=== PATIENT | female | born 1995 | race Caucasian/White ===

== ENCOUNTER → 2022-10-17 | Outpatient (CLI) | payer OTHER, SELFPAY ==
[2022-10-17 15:30] LABS: Internal QC Validated? YES +Cl - CLEAR BKGD; Pregnancy, Serum, hCG Quali. NEGATIVE Negative
[2022-10-17 15:49] LABS: Free T3 24.7 pg/mL (2.18-3.98)
== END | disposition home or self-care (01) ==
LOC: LAB 14:54
PROVIDERS: PCP Nurse Practitioner Family; Referring Provider Internal Medicine Endocrinology, Diabetes & Metabolism; Visit Provider Internal Medicine Endocrinology, Diabetes & Metabolism
DX: E05.00 Thyrotoxicosis with diffuse goiter without thyrotoxic crisis or storm (principal)
CPT/HCPCS: 36415; 84481; 84703

== ENCOUNTER → 2022-10-24 | Outpatient (CLI) | payer OTHER, SELFPAY ==
--- NOTE | 2022-10-24 12:05 | NM_ITS ---
INDICATION: 12 mci please for treatment of Grave''s disease -- NO POST TREATMENT SCAN EXAMINATION: NUCLEAR MEDICINE THYROID THERAPY - NM Radiopharmaceutical Therapy, by oral administration TECHNIQUE: After obtaining informed consent, the patient was orally administered a 12.8 mCi I-131 tablet. COMPARISON: None. FINDINGS: Oral administration of a 12.8 mCi tablet of iodine-131. NM/Therapy I-131 IMPRESSION: Radioactive iodine therapy. Electronically Signed: Steven Colón MD at 14:05 EDT ,
== END | disposition home or self-care (01) ==
LOC: NM 12:04
PROVIDERS: PCP Nurse Practitioner Family; Referring Provider Internal Medicine Endocrinology, Diabetes & Metabolism; Visit Provider Internal Medicine Endocrinology, Diabetes & Metabolism
DX: E05.00 Thyrotoxicosis with diffuse goiter without thyrotoxic crisis or storm (principal)
CPT/HCPCS: 79005; A9517

== ENCOUNTER → 2023-01-19 | Outpatient (CLI) | payer SELFPAY ==
[2023-01-19 09:55] LABS: Bacteria 0 SEEN /hpf (None Seen); Mucous, Urine 0 SEEN /hpf (<or=2+); Squamous Epithelial Cells - UA 0 SEEN /hpf (5-10)
[2023-01-19 11:19] LABS: Color, Urine Yellow (Yellow); Glucose, Dipstick Normal (Normal); Ketone-Dipstick Negative (Negative); Leukocyte Esterase-Dipstick 100 /ul (Negative); Nitrite-Dipstick Negative (Negative); Occult Blood-Urine 250 /ul (Negative); Protein-Dipstick 15 mg/dl (Negative); Urine Bilirubin Dipstick Negative (Negative); Urine Clarity Sl. Cloudy (Clear); Urine Urobilinogen Normal (Normal); Urine pH 6.5 (5.0 - 8.0)
[2023-01-19 11:29] LABS: White Blood Cells 0-5 SEEN /hpf (0-5)
[2023-01-19 11:30] LABS: Red Blood Cells-Urine 25-50 SEEN /hpf (0-5)
[2023-01-19 11:51] LABS: T4 Free Direct 0.95 ng/dL (0.76-1.46); Thyroid Stim Hormone (TSH) 1.85 uIU/mL (0.358-3.74)
== END | disposition home or self-care (01) ==
PROVIDERS: PCP Nurse Practitioner Family; Referring Provider Internal Medicine Endocrinology, Diabetes & Metabolism; Visit Provider Internal Medicine Endocrinology, Diabetes & Metabolism
DX: R30.0 Dysuria (principal); R50.9 Fever, unspecified; E05.00 Thyrotoxicosis with diffuse goiter without thyrotoxic crisis or storm
CPT/HCPCS: 36415; 81001; 84439; 84443; 84481; 87086